=== PATIENT | female | born 1975 | race African-American/Black ===

== ENCOUNTER 2023-07-17 01:17 | Day surgery (SDC) | payer BC, SELFPAY ==
[2023-05-26 14:48] VITALS: BMI 32.0
--- NOTE | 2023-06-09 12:56 | SUR.PREOP ---
Addendum entered by Evelina Pierre RN 06/09/23 12:57: Patient called regarding upcoming procedure. Reviewed preop instructions, appointment times, and procedure prep. Unable to leave message as patient's voicemail box was full. Original Note: Patient called regarding upcoming procedure. Reviewed preop instructions, appointment times, and procedure prep.
--- NOTE | 2023-07-12 14:07 | PC.NURSE ---
Spoke with pt. No changes to meds or medical history. Reviewed instructions and times. Chart updated.
--- NOTE | 2023-07-14 09:50 | SUR.PREOP ---
Patient called regarding upcoming procedure- no answer.
[2023-07-17 12:53] VITALS: BP 108/60; PULSE 64; RESP 18; TEMP 36.5; O2SAT 100
[2023-07-17] MEDS: LACTATED RINGERS 1,000 ML 150 ML IV CONT (13:46)
--- NOTE | 2023-07-17 13:51 | P.PNAN_ITS ---
Anes - Initial Pre Proc Eval Procedure: Operation Date: 07/17/23 13:30 Proposed Procedures p Screening Colonoscopy - Mark Cheatham MD Date/Time: 07/17/23 13:51 Surgeon: Mark Cheatham MD Pre Op Diagnosis: neoplasm screening Patient Data Age: 47 Gender: F Height: 1.6 m Weight: 78.5 kg Last Vital Signs Temp 97.7 F 07/17/23 12:53 Pulse 64 07/17/23 12:53 Resp 18 07/17/23 12:53 BP 108/60 07/17/23 12:53 Pulse Ox 100 07/17/23 12:53 O2 Del Method Room Air 07/17/23 12:53 Allergies Allergy/AdvReac Type Severity Reaction Status Date / Time No Known Allergies Allergy Verified 07/17/23 12:49 Home Medications Medication Instructions Recorded Confirmed Type Adults Multivitamin tablet PO DAILY 05/26/23 History albuterol sulfate 90 mcg/actuation 2 puff inhalation PRN PRN 05/26/23 05/26/23 History aerosol inhaler Shortness Of Breath Or Wheezing diazepam 5 mg tablet 10 mg PO Q3-4H 05/26/23 05/26/23 History erenumab-aooe 140 mg/mL 140 mg subcut MONTHLY 05/26/23 05/26/23 History subcutaneous auto-injector (Aimovig Autoinjector) montelukast 10 mg tablet 10 mg PO DAILY 05/26/23 05/26/23 History sertraline 100 mg tablet 100 mg PO HS 05/26/23 05/26/23 History sertraline 50 mg tablet 50 mg PO QAM 05/26/23 05/26/23 History sumatriptan succinate 100 mg tablet 100 mg PO PRN PRN Migraine Headache 05/26/23 05/26/23 History trazodone 50 mg tablet 50 mg PO HS 05/26/23 05/26/23 History Patient hx anesthesia problems: none Family hx anesthesia problems: none Results Review: All pre-operative results and documents have been reviewed as part of the pre- operative evaluation. PMFSH Social History Social History Smoking status: Never smoker Alcohol intake: never Substance use: never Living arrangements: with family Spiritual care concerns: No Anes - Eval Final PreProcedure Day of Procedure 07/17/23 13:51 Patient weight: overweight Heart: regular rate and rhythm Lungs: clear to auscultation Airway: Mallampati scale class II Neurological: alert and oriented Last oral intake: 6 hours ASA classification: II Emergent: no Anesthetic plan: proceed Anesthesia type and monitoring: general and standard monitoring Results Review: All pre-operative results and documents have been reviewed as part of the pre- operative evaluation. Informed Consent: The patient's anesthetic plan and its attendant risks and benefits were discussed with the patient/family/POA. Questions were solicited and answers provided to the satisfaction of the patient/family/POA.
--- NOTE | 2023-07-17 14:31 | PM.HPGS ---
History of Present Illness History of Present Illness Consent: Risks, benefits, and alternatives have been discussed and questions answered. Patient agrees to proceed with procedure. Chief complaint: neoplasm screening Narrative: Kerry Durant is a 47 year old female here for screening colonoscopy, had one about 20 years ago Review of Systems Review of Systems: All systems reviewed & are unremarkable except as noted in HPI and below PMFSH Past Medical History Medical History (Updated 07/17/23 @ 14:32 by Mark Cheatham MD) Colon cancer screening Social History Social History Smoking status: Never smoker Alcohol intake: never Substance use: never Living arrangements: with family Spiritual care concerns: No Meds Home Medications and Allergies Home Medications Medication Instructions Recorded Confirmed Type Adults Multivitamin tablet PO DAILY 05/26/23 History albuterol sulfate 90 mcg/actuation 2 puff inhalation PRN PRN 05/26/23 05/26/23 History aerosol inhaler Shortness Of Breath Or Wheezing diazepam 5 mg tablet 10 mg PO Q3-4H 05/26/23 05/26/23 History erenumab-aooe 140 mg/mL 140 mg subcut MONTHLY 05/26/23 05/26/23 History subcutaneous auto-injector (Aimovig Autoinjector) montelukast 10 mg tablet 10 mg PO DAILY 05/26/23 05/26/23 History sertraline 100 mg tablet 100 mg PO HS 05/26/23 05/26/23 History sertraline 50 mg tablet 50 mg PO QAM 05/26/23 05/26/23 History sumatriptan succinate 100 mg tablet 100 mg PO PRN PRN Migraine Headache 05/26/23 05/26/23 History trazodone 50 mg tablet 50 mg PO HS 05/26/23 05/26/23 History Allergies Allergy/AdvReac Type Severity Reaction Status Date / Time No Known Allergies Allergy Verified 07/17/23 12:49 Vital Signs Vital Signs - 24 hr 07/17/23 12:53 Temperature 97.7 F Pulse Rate 64 Respiratory Rate 18 Blood Pressure 108/60 Pulse Oximetry 100 Oxygen Delivery Room Air Exam Const: General: comfortable and no acute distress HENMT: Face/Nose/Sinus: Normal nares present Eyes: General: appearance normal, both eyes and all related structures Neck: Neck: no JVD Resp: Auscultation: clear to auscultation bilaterally Cardio: Rate: regular rate Rhythm: regular rhythm GI: Inspection: non-distended GI Palp: Yes Soft to palpation Skin: General skin exam: normal color Neuro: General: gait normal Speech: normal speech Extrem: General: normal to inspection Psych: Mental Status: mental status grossly normal Assessment and Plan Assessment and plan (1) Colon cancer screening: Code(s): Z12.11 - Encounter for screening for malignant neoplasm of colon Status: Acute Assessment and Plan: colonoscopy
[2023-07-17 14:45] VITALS: BP 88/50; PULSE 68; RESP 14; O2SAT 100
[2023-07-17 14:55] VITALS: BP 99/61; PULSE 60; RESP 16; O2SAT 100
[2023-07-17 15:05] VITALS: BP 110/76; PULSE 65; RESP 19; O2SAT 100
--- NOTE | 2023-07-17 15:15 | SUR.PHASEII ---
Pt is up in a chair and dressed. Waiting for ride.
== END 2023-07-17 16:00 | disposition home or self-care (01) ==
PROVIDERS: Visit Provider Internal Medicine Gastroenterology
PROC: 0DJD8ZZ Inspection of Lower Intestinal Tract, Via Natural or Artificial Opening Endoscopic (ICD-10-PCS; CPT 45378; principal; 2023-07-17 13:30)
DX: Z12.11 Encounter for screening for malignant neoplasm of colon (principal); K64.8 Other hemorrhoids; Z79.51 Long term (current) use of inhaled steroids
CPT/HCPCS: 45378; J2704; J7120

== ENCOUNTER 2023-08-11 10:23 | Outpatient (CLI) | payer BC, SELFPAY ==
--- NOTE | ~2023-08-11 | MM_ITS ---
EXAMINATION: MM screening sonia BI w ct HISTORY: Screening mammogram TECHNIQUE: Craniocaudal and mediolateral oblique 3-D tomosynthesis images were obtained and synthetic 2-D images were generated. CAD analysis was submitted and interpreted. COMPARISON: No prior mammogram is available for comparison at this institution. BREAST PARENCHYMAL COMPOSITION: There are scattered areas of fibroglandular density. FINDINGS: There is no evidence of suspicious mass, calcification, or architectural distortion to sugg est malignancy in either breast. IMPRESSION: 1. No mammographic evidence of malignancy. 2. Recommend routine screening mammography in one year. BI-RADS Category 1: Negative Reviewed, dictated and finalized at location A.
== END 2023-08-11 10:24 | disposition home or self-care (01) ==
LOC: ANHIMG 10:28
DX: Z12.31 Encounter for screening mammogram for malignant neoplasm of breast (principal)
CPT/HCPCS: 77063; 77067